=== PATIENT | male | born 2000 | race Caucasian/White ===

== ENCOUNTER 2018-12-22 19:31 | Emergency (ER) | payer MEDICAID, OTHER ==
[2018-12-22 20:09] VITALS: BMI 29.2
[2018-12-22 20:10] VITALS: RESP 18; O2SAT 97
[2018-12-22] MEDS ORDERED: Lidocaine 5% Patch TD STA (20:37)
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
[2018-12-22 23:08] VITALS: BP 142/72; PULSE 62; TEMP 98
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
== END 2018-12-22 23:01 | disposition home or self-care (01) ==
LOC: ED 19:31
DX: Z04.1 Encounter for examination and observation following transport accident (principal); V43.52XA Car driver injured in collision with other type car in traffic accident, initial encounter; Y92.410 Unspecified street and highway as the place of occurrence of the external cause